=== PATIENT | female | born 1995 | race Caucasian/White ===

== ENCOUNTER 2021-04-01 11:41 | Emergency (ER) | payer BC ==
[2021-04-01 11:55] VITALS: BP 127/83
[2021-04-01] MEDS: SODIUM CHLORIDE 0.9% 1,000 ML IV STA (12:08)
[2021-04-01 12:11] LABS: BASOPHILS % (AUTO) 0.2 %; EOSINOPHILS % (AUTO) 0.2 %; HCT - HEMATOCRIT 37.5 % (37.0-47.0); HGB - HEMOGLOBIN 12.3 g/dL (12.0-16.0); LYMPHOCYTES # (AUTO) 1.8 10^3/uL (1.5-3.5); LYMPHOCYTES % (AUTO) 20.9 %; MEAN CORPUSCULAR HEMOGLOBIN 29.8 pg (27.0-31.0); MEAN CORPUSCULAR HGB CONC 32.8 g/dL (32.0-36.0); MEAN CORPUSCULAR VOLUME 90.8 fL (81.0-99.0); MEAN PLATELET VOLUME 11.2 fL (7.9-10.8); MONOCYTES # (AUTO) 0.6 10^3/uL (0.0-1.0); MONOCYTES % (AUTO) 6.8 %; NEUTROPHILS # (AUTO) 6.2 10^3/uL (1.5-6.6); NEUTROPHILS % (AUTO) 71.6 %; PLT - PLATELET COUNT 195 10^3/uL (130-450); RED BLOOD COUNT 4.13 10^6/uL (4.20-5.40); RED CELL DISTRIBUTION WIDTH 12.9 % (12.0-15.0); WHITE BLOOD COUNT 8.7 x10^3/uL (4.8-10.8)
[2021-04-01 12:14] LABS: BILIRUBIN,URINE NEGATIVE (NEGATIVE); GLUCOSE, URINE (UA) NEGATIVE (NEGATIVE); KETONES,URINE (UA) TRACE mg/dL (NEGATIVE); LEUKOCYTE ESTERASE, URINE TRACE (NEGATIVE); NITRITE,URINE NEGATIVE (NEGATIVE); OCCULT BLOOD,URINE TRACE-INTA (NEGATIVE); PH,URINE 7.5 PH (5.0-7.5); PROTEIN,URINE NEGATIVE (NEGATIVE); UROBILINOGEN,URINE 0.2 (NORMAL) E.U./dL (NORMAL)
[2021-04-01 12:28] LABS: BACTERIA,URINE Few /HPF (None Seen); CLARITY,URINE HAZY (CLEAR); RBC,URINE 0-5 /HPF (0-5); SQUAMOUS EPITHELIAL CELL,UR MOD Squamous (<= Few)
[2021-04-01 12:37] LABS: ALBUMIN 4.7 g/dL (3.2-5.5); ALBUMIN/GLOBULIN RATIO 1.6 (1.0-2.2); CALCIUM 9.1 mg/dL (8.5-10.3); CREATININE 0.4 mg/dL (0.4-1.0); POTASSIUM 3.4 mmol/L (3.5-5.0); TOTAL PROTEIN 7.7 g/dL (6.7-8.2)
--- NOTE | 2021-04-01 12:44 | ED Physician Documentation ---
History of Present Illness - Stated complaint Stated Complaint: VOMITING - Chief complaint Chief Complaint: General - History obtained from History obtained from: Patient - History of Present Illness Timing: How many days ago (2-3) Pain level max: 0 Pain level now: 0 - Additonal information Additional information: Patient is a 25-year-old female, 2 para 0. She presents to the emergency department with nausea and vomiting. Ongoing for the past several days. Unable to keep anything down. Went to the walk-in clinic today who sent her here for further evaluation. Has not taken anything for nausea. No abdominal pain. No vaginal bleeding. Worse with eating and drinking. Nothing makes it better. Review of Systems Constitutional: denies: Fever, Chills Cardiac: denies: Chest pain / pressure Respiratory: denies: Dyspnea, Cough GI: reports: Nausea, Vomiting. denies: Abdominal Pain, Diarrhea Skin: denies: Rash Musculoskeletal: denies: Neck pain, Back pain Neurologic: denies: Headache PD PAST MEDICAL HISTORY - Past Medical History Past Medical History: No - Past Surgical History Past Surgical History: No - Present Medications Home Medications: Ambulatory Orders Medication Instructions Recorded Confirmed Ondansetron Odt [Zofran] 4 mg TL Q6H PRN #20 tablet 04/01/21 - Allergies Allergies/Adverse Reactions: Allergies Allergy/AdvReac Type Severity Reaction Status Date / Time amoxicillin Allergy Anaphylaxis Verified 04/01/21 11:55 - Social History Does the pt smoke?: No Smoking Status: Never smoker Does the pt drink ETOH?: No Does the pt have substance abuse?: No - Immunizations Immunizations are current?: Yes - POLST Patient has POLST: No PD ED PE NORMAL - Vitals Vital signs reviewed: Yes - General General: Alert and oriented X 3, No acute distress, Well developed/nourished - HEENT HEENT: PERRL, Moist mucous membranes - Neck Neck: Supple, no meningeal sign - Cardiac Cardiac: RRR, Strong equal pulses - Respiratory Respiratory: No respiratory distress, Clear bilaterally - Abdomen Abdomen: Soft, Non tender, Non distended - Back Back: No spinal TTP - Derm Derm: Warm and dry - Extremities Extremities: No edema - Neuro Neuro: Alert and oriented X 3 - Psych Psych: Normal mood, Normal affect Results - Vitals Vitals: Vital Signs - 24 hr 04/01/21 11:52 Temperature 36.7 C Heart Rate 80 Respiratory 16 Rate Blood Pressure 127/83 H O2 Saturation 100 Oxygen O2 Source Room air - Labs Labs: Laboratory Tests 04/01/21 04/01/21 04/01/21 12:05 12:06 12:06 WBC 8.7 RBC 4.13 L Hgb 12.3 Hct 37.5 MCV 90.8 MCH 29.8 MCHC 32.8 RDW 12.9 Plt Count 195 MPV 11.2 H Neut # (Auto) 6.2 Lymph # (Auto) 1.8 [place] # (Auto) 0.6 Eos # (Auto) 0.0 Baso # (Auto) 0.0 Absolute Nucleated RBC 0.00 Nucleated RBC % 0.0 Sodium 134 L Potassium 3.4 L Chloride 102 Carbon Dioxide 23 Anion Gap 9.0 BUN 8 Creatinine 0.4 Estimated GFR (MDRD) 191 Glucose 91 Calcium 9.1 Total Bilirubin 1.0 AST 17 ALT 19 Alkaline Phosphatase 55 Total Protein 7.7 Albumin 4.7 Globulin 3.0 Albumin/Globulin Ratio 1.6 Lipase 26 Urine Color YELLOW Urine Clarity HAZY Urine pH 7.5 Ur Specific [place] 1.015 Urine Protein NEGATIVE Urine Glucose (UA) NEGATIVE Urine Ketones TRACE Urine Occult Blood TRACE-INTA Urine Nitrite NEGATIVE Urine Bilirubin NEGATIVE Urine Urobilinogen 0.2 (NORMAL) Ur Leukocyte Esterase TRACE H Urine RBC 0-5 Urine WBC 4-5 Ur Squamous Epith Cells MOD Squamous H Urine Bacteria Few Ur Microscopic Review INDICATED Urine Culture Comments NOT INDICATED PD MEDICAL DECISION MAKING - ED course Complexity details: reviewed results, re-evaluated patient, considered differential, d/w patient ED course: Patient is a 25-year-old female who presents to the emergency department with vomiting. Patient is . Bedside ultrasound reveals an intrauterine , 6 weeks 4 days with a heart rate of about 130. Patient feels better after Zofran and IV fluids. We discussed risks and benefits of Zofran including a study that showed a potential increase in cleft palate. Patient is okay with taking Zofran. Will prescribe this for home as well and have her follow-up with OB. Patient counseled regarding signs and symptoms for which I believe and urgent re-evaluation would be necessary. Patient with good understanding of and agreement to plan and is comfortable going home at this time This document was made in part using voice recognition software. While efforts are made to proofread this document, sound alike and grammatical errors may occur. Departure - Departure Disposition: 01 Home, Self Care Clinical Impression: Vomiting Qualifiers: Vomiting type: unspecified Vomiting Intractability: non-intractable Nausea presence: with nausea Qualified Code(s): R11.2 - Nausea with vomiting, unspecified Qualifiers: Weeks of gestation: less than 8 weeks Qualified Code(s): Z3A.01 - Less than 8 weeks gestation of Condition: Good Instructions: ED Preg Morning Sickness Follow-Up: [facility] [Provider Group] Prescriptions: Ondansetron Odt [Zofran] 4 mg TL Q6H PRN #20 tablet PRN Reason: Nausea / Vomiting Comments: Please follow-up with OB for further care. Your prescriptions were sent to [facility] in [place]. Drink plenty of fluids. Return if you worsen.
[2021-04-01] MEDS: ONDANSETRON 4 MG/2 ML VIAL IVP STA (12:50)
== END 2021-04-01 14:02 | disposition home or self-care (01) ==
LOC: ED 11:41
DX: O21.0 Mild hyperemesis gravidarum (principal); Z3A.01 Less than 8 weeks gestation of pregnancy
CPT/HCPCS: 36415; 80053; 81001; 81003; 83690; 85025; 87086; 96361; 96374; 99283

== ENCOUNTER 2021-04-07 01:59 | Emergency (ER) | payer BC ==
--- NOTE | 2021-04-07 02:12 | ED Physician Documentation ---
History of Present Illness - Stated complaint Stated Complaint: NO BM/RECTAL BLEEDING - Chief complaint Chief Complaint: General - History obtained from History obtained from: Patient - History of Present Illness Timing: How many weeks ago (1) - Additonal information Additional information: 25-year-old female who is about 8 weeks has developed constipation over the past week. She has had this happen to her once before in October of this year. She required an enema which had good results. She states that since that time she has had regular bowel movements until about 1 week ago. She developed some nausea and vomiting was seen in the emergency department had to take some Zofran and subsequently became constipated. The patient indicates that she is having some rectal pain associated with this and she has had some blood in the commode as well. She has not had some straining to get stool and nothing has happened. She is interested today and having an enema and she would like to have the fetus evaluated following that as she has read somewhere that an enema can stimulate contractions or cause a problem with the fetus. Review of Systems Constitutional: denies: Fever Nose: denies: Congestion Throat: denies: Sore throat Cardiac: denies: Chest pain / pressure Respiratory: denies: Dyspnea, Cough GI: reports: Abdominal Pain, Nausea, Constipation. denies: Vomiting : denies: Dysuria, Frequency PD PAST MEDICAL HISTORY - Past Surgical History Past Surgical History: No - Present Medications Home Medications: Ambulatory Orders Medication Instructions Recorded Confirmed Ondansetron Odt [Zofran] 4 mg TL Q6H PRN #20 tablet 04/01/21 - Allergies Allergies/Adverse Reactions: Allergies Allergy/AdvReac Type Severity Reaction Status Date / Time amoxicillin Allergy Anaphylaxis Verified 04/07/21 02:08 - Social History Does the pt smoke?: No Smoking Status: Never smoker Does the pt drink ETOH?: No Does the pt have substance abuse?: No - Immunizations Immunizations are current?: Yes - POLST Patient has POLST: No PD ED PE NORMAL - Vitals Vital signs reviewed: Yes (Normal) - General General: Alert and oriented X 3, No acute distress, Well developed/nourished - HEENT HEENT: Atraumatic, PERRL, EOMI - Neck Neck: Supple, no meningeal sign - Respiratory Respiratory: No respiratory distress - Abdomen Abdomen: Normal bowel sounds, Soft, Non tender, Non distended, No organomegaly - Rectal Rectal: Other (with Pooja as metal control coordinator the rectum is examined. There are 2 small non-thrombosed hemorrhoids without bleeding. 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 I was not able to provide gestational age or heart rate. Secondary to my incompetence with the new equipment. PD MEDICAL DECISION MAKING - ED course Complexity details: reviewed results, re-evaluated patient, considered differential, d/w patient ED course: 25-year-old female with a week of constipation and has relief of her constipation with the use of an oil retention enema and she has viability demonstrated by bedside ultrasound following the enema. I have encouraged the patient to use MiraLAX for the next 2 weeks to retrain her colon. Departure - Departure Disposition: 01 Home, Self Care Clinical Impression: Constipation Qualifiers: Constipation type: unspecified constipation type Qualified Code(s): K59.00 - Constipation, unspecified Condition: Stable Instructions: ED Constipation Follow-Up: Your, doctor [Other] Comments: Graciela, with constipation lasting a week it is fairly common for the colon to become inactive and one way to combat this is to use MiraLAX on a regular basis for the next 2 weeks.
[2021-04-07 04:19] VITALS: BP 115/67
== END 2021-04-07 04:00 | disposition home or self-care (01) ==
LOC: ED 01:59
DX: O99.611 Diseases of the digestive system complicating pregnancy, first trimester (principal); K59.00 Constipation, unspecified; Z3A.08 8 weeks gestation of pregnancy
CPT/HCPCS: 99282; 99283

== ENCOUNTER 2021-04-18 10:57 | Emergency (ER) | payer BC ==
[2021-04-18] MEDS ORDERED: ONDANSETRON 4 MG/2 ML VIAL IVP STA (11:50)
[2021-04-18] MEDS ORDERED: SODIUM CHLORIDE 0.9% 1,000 ML IV STA (11:50)
[2021-04-18 11:52] LABS: BASOPHILS % (AUTO) 0.3 %; HCT - HEMATOCRIT 40.6 % (37.0-47.0); HGB - HEMOGLOBIN 14.1 g/dL (12.0-16.0); LYMPHOCYTES # (AUTO) 1.1 10^3/uL (1.5-3.5); LYMPHOCYTES % (AUTO) 10.2 %; MEAN CORPUSCULAR HEMOGLOBIN 30.3 pg (27.0-31.0); MEAN CORPUSCULAR HGB CONC 34.7 g/dL (32.0-36.0); MEAN CORPUSCULAR VOLUME 87.1 fL (81.0-99.0); MEAN PLATELET VOLUME 11.8 fL (7.9-10.8); MONOCYTES # (AUTO) 0.4 10^3/uL (0.0-1.0); MONOCYTES % (AUTO) 3.4 %; NEUTROPHILS # (AUTO) 8.9 10^3/uL (1.5-6.6); NEUTROPHILS % (AUTO) 85.7 %; PLT - PLATELET COUNT 211 10^3/uL (130-450); RED BLOOD COUNT 4.66 10^6/uL (4.20-5.40); RED CELL DISTRIBUTION WIDTH 12.7 % (12.0-15.0); WHITE BLOOD COUNT 10.3 x10^3/uL (4.8-10.8)
[2021-04-18 12:11] LABS: ALBUMIN 5.3 g/dL (3.2-5.5); ALBUMIN/GLOBULIN RATIO 1.3 (1.0-2.2); BILIRUBIN,TOTAL 1.4 mg/dL (0.2-1.0); CALCIUM 10.2 mg/dL (8.5-10.3); CREATININE 0.5 mg/dL (0.4-1.0); POTASSIUM 3.4 mmol/L (3.5-5.0); TOTAL PROTEIN 9.3 g/dL (6.7-8.2)
[2021-04-18 12:40] LABS: BILIRUBIN,URINE NEGATIVE (NEGATIVE); GLUCOSE, URINE (UA) NEGATIVE (NEGATIVE); KETONES,URINE (UA) >=80 mg/dL (NEGATIVE); LEUKOCYTE ESTERASE, URINE NEGATIVE (NEGATIVE); NITRITE,URINE NEGATIVE (NEGATIVE); OCCULT BLOOD,URINE MODERATE (NEGATIVE); PROTEIN,URINE TRACE mg/dL (NEGATIVE); UROBILINOGEN,URINE 0.2 (NORMAL) E.U./dL (NORMAL)
[2021-04-18 13:10] VITALS: BP 147/77
[2021-04-18 13:11] LABS: CLARITY,URINE CLEAR (CLEAR)
[2021-04-18 13:13] LABS: WBC CLUMPS,URINE NONE SEEN; WBC,URINE 0-3 /HPF (0-5)
[2021-04-18 13:14] LABS: BACTERIA,URINE None Seen /HPF (None Seen); EPITHELIAL CELLS,UR None Seen /HPF (<= Few); SQUAMOUS EPITHELIAL CELL,UR FEW Squamous (<= Few)
--- NOTE | 2021-04-18 13:24 | ED Physician Documentation ---
PD HPI NVD - Stated complaint Stated Complaint: N/V - Chief complaint Chief Complaint: Abd Pain - History obtained from History obtained from: Patient - History of Present Illness Timing - onset: How many days ago (33) Timing - duration: Days Timing - details: Gradual onset, Still present Associated symptoms: Abdominal pain, Dizzy, Near syncope / syncope Contributing factors: Other () Improved by: Vomiting, Meds Worsened by: Eating Similar symptoms before: Diagnosis (Hyperemesis gravidarum) Recently seen: Clinic (Sent from the OB clinic to the emergency department for hydration) - Additonal information Additional information: 25-year-old female 9 weeks has developed symptoms of hyperemesis she has been treated for hyperemesis recently in the emergency department with intravenous fluid and Zofran she has run out of her Zofran at home she has began to have some more issues with vomiting and she has not been able to hold anything down for about 3 days. She went into her [facility] doctor for her first visit and she was asked to come to the emergency department for hydration. She has had 2 ultrasounds with this . Review of Systems Ears: denies: Ear pain Nose: denies: Congestion Throat: denies: Oral lesions / sores, Sore throat Cardiac: denies: Chest pain / pressure, Palpitations Respiratory: denies: Dyspnea, Cough GI: reports: Nausea, Vomiting. denies: Abdominal Pain : denies: Dysuria, Frequency Skin: denies: Rash Musculoskeletal: denies: Neck pain, Back pain, Extremity pain Neurologic: denies: Generalized weakness, Focal weakness, Numbness PD PAST MEDICAL HISTORY - Past Surgical History Past Surgical History: No Ortho: Rotator cuff repair - Present Medications Home Medications: Ambulatory Orders Medication Instructions Recorded Confirmed Ondansetron Odt [Zofran] 4 mg TL Q6H PRN #20 tablet 04/01/21 Ondansetron Odt [Zofran] 4 mg TL Q6H PRN #10 tablet 04/18/21 - Allergies Allergies/Adverse Reactions: Allergies Allergy/AdvReac Type Severity Reaction Status Date / Time amoxicillin Allergy Anaphylaxis Verified 04/18/21 11:06 - Social History Does the pt smoke?: No Smoking Status: Never smoker Does the pt drink ETOH?: No Does the pt have substance abuse?: No - Immunizations Immunizations are current?: Yes - POLST Patient has POLST: No PD ED PE NORMAL - Vitals Vital signs reviewed: Yes (normal ) - General General: Alert and oriented X 3, Well developed/nourished, Other (appears nauseated ) - HEENT HEENT: Atraumatic, PERRL, EOMI - Neck Neck: Supple, no meningeal sign, No bony TTP - Cardiac Cardiac: RRR, No murmur - Respiratory Respiratory: No respiratory distress, Clear bilaterally - Abdomen Abdomen: Normal bowel sounds, Soft, Non tender, Non distended, No organomegaly - Back Back: No CVA TTP, No spinal TTP - Derm Derm: Normal color, Warm and dry, No rash - Extremities Extremities: No deformity, No edema - Neuro Neuro: Alert and oriented X 3, endband sizer 2-12 intact, No motor deficit, No sensory deficit, Normal speech Eye Opening: Spontaneous Motor: Obeys Commands Verbal: Oriented GCS Score: 15 - Psych Psych: Normal mood, Normal affect Results - Vitals Vitals: Vital Signs - 24 hr 04/18/21 04/18/21 11:05 13:09 Temperature 36.5 C Heart Rate 80 65 Respiratory 18 13 Rate Blood Pressure 108/72 147/77 H O2 Saturation 100 100 Oxygen O2 Source Room air - Labs Labs: Laboratory Tests 04/18/21 04/18/21 04/18/21 11:36 11:36 12:06 WBC 10.3 RBC 4.66 Hgb 14.1 Hct 40.6 MCV 87.1 MCH 30.3 MCHC 34.7 RDW 12.7 Plt Count 211 MPV 11.8 H Neut # (Auto) 8.9 H Lymph # (Auto) 1.1 L [place] # (Auto) 0.4 Eos # (Auto) 0.0 Baso # (Auto) 0.0 Absolute Nucleated RBC 0.00 Nucleated RBC % 0.0 Sodium 135 Potassium 3.4 L Chloride 98 L Carbon Dioxide 21 Anion Gap 16.0 H BUN 20 Creatinine 0.5 Estimated GFR (MDRD) 148 Glucose 89 Calcium 10.2 Total Bilirubin 1.4 H AST 25 ALT 23 Alkaline Phosphatase 64 Total Protein 9.3 H Albumin 5.3 Globulin 4.0 Albumin/Globulin Ratio 1.3 Lipase 32 Urine Color YELLOW Urine Clarity CLEAR Urine pH 6.0 Ur Specific [place] >=1.030 H Urine Protein TRACE Urine Glucose (UA) NEGATIVE Urine Ketones >=80 H Urine Occult Blood MODERATE H Urine Nitrite NEGATIVE Urine Bilirubin NEGATIVE Urine Urobilinogen 0.2 (NORMAL) Ur Leukocyte Esterase NEGATIVE Urine RBC 6-10 H Urine WBC 0-3 Urine WBC Clumps NONE SEEN Ur Epithelial Cells None Seen Ur Squamous Epith Cells FEW Squamous Urine Bacteria None Seen Ur Microscopic Review INDICATED Urine Culture Comments NOT INDICATED PD MEDICAL DECISION MAKING - ED course Complexity details: reviewed old records, reviewed results, re-evaluated patient, considered differential, d/w patient ED course: 25-year-old female 9 weeks with hyperemesis gravidarum has improvement with the use of intravenous saline and Zofran. She is given oral fluid challenge does well with this and wants to go home. Departure - Departure Disposition: , Self Care Clinical Impression: Hyperemesis gravidarum Condition: Stable Instructions: ED Preg Morning Sickness Follow-Up: [facility] [Provider Group] Prescriptions: Ondansetron Odt [Zofran] 4 mg TL Q6H PRN #10 tablet PRN Reason: Nausea / Vomiting Comments: Graciela, today it appears you were bit dehydrated from all the vomiting and you have been given some intravenous fluids and we have written a prescription for some Zofran which has been E scribed to [facility] in [place]. Discharge Date/Time: 04/18/21 14:13
== END 2021-04-18 14:13 | disposition home or self-care (01) ==
LOC: ED 10:57
DX: O21.0 Mild hyperemesis gravidarum (principal); Z3A.09 9 weeks gestation of pregnancy
CPT/HCPCS: 36415; 80053; 81001; 81003; 83690; 85025; 87086; 96361; 96374; 99284

== ENCOUNTER 2021-05-04 11:17 | Outpatient (CLI) | payer BC ==
--- NOTE | 2021-05-04 12:20 | Ultrasound Report ---
PROCEDURE: OB First Trimester INDICATIONS: +PREG TEST OUTSIDE/PRIOR DATING DATA: Last menstrual period (LMP): 02/03/2021. LMP-based estimated date of delivery (LALO): 11/10/2021. First dating scan (date and location): 05/04/2021. Estimated date of delivery (LALO) from first dating scan: 11/19/2021. The below data below was generated using the ultrasound LALO of 11/19/2021 TECHNIQUE: Real-time scanning was performed of the fetus and maternal pelvic organs, with image documentation. COMPARISON: None FINDINGS: Embryo: The gestational sac diameter is 4.8 cm corresponding with 10 weeks 3 days. Koppel-rump length is 4.7 cm corresponding with 11 weeks 4 days. Heart rate: 164 There is a subchorionic hemorrhage measuring 1.5 x 0.7 x 3.0 cm superior to the gestational sac. Maternal organs: A right ovarian corpus luteal cyst is seen. IMPRESSION: 1. Live intrauterine with a composite gestational age by crown-rump length of 11 weeks 4 da ys. 2. Small subchorionic hemorrhage superior to the gestational sac measuring 1.5 x 0.7 x 3.4 cm. Reviewed by: Wily Downing on 05/04/2021 11:18 AM [facility] Approved by: Wily Downing on 05/04/2021 11:18 AM [facility] Station ID: [id number]
== END 2021-05-04 11:18 | disposition home or self-care (01) ==
LOC: DI 11:17
PROVIDERS: ATTEND Obstetrics & Gynecology
DX: O20.9 Hemorrhage in early pregnancy, unspecified (principal); Z3A.11 11 weeks gestation of pregnancy

== ENCOUNTER 2021-06-01 09:04 | Outpatient (CLI) | payer BC ==
[2021-06-01 09:30] LABS: BILIRUBIN,URINE NEGATIVE (NEGATIVE); GLUCOSE, URINE (UA) NEGATIVE (NEGATIVE); KETONES,URINE (UA) NEGATIVE (NEGATIVE); LEUKOCYTE ESTERASE, URINE MODERATE (NEGATIVE); NITRITE,URINE POSITIVE (NEGATIVE); OCCULT BLOOD,URINE MODERATE (NEGATIVE); PROTEIN,URINE 30 mg/dL (NEGATIVE); UROBILINOGEN,URINE 1 (NORMAL) E.U./dL (NORMAL)
[2021-06-01 09:31] LABS: CLARITY,URINE CLEAR (CLEAR)
[2021-06-01 09:39] LABS: BACTERIA,URINE Few /HPF (None Seen); RBC,URINE TNTC /HPF (0-5); SQUAMOUS EPITHELIAL CELL,UR RARE Squamous (<= Few); WBC CLUMPS,URINE PRESENT; WBC,URINE >25 /HPF (0-5)
== END 2021-06-01 09:05 | disposition home or self-care (01) ==
LOC: LAB 09:04
PROVIDERS: ATTEND Obstetrics & Gynecology
DX: R30.0 Dysuria (principal)
CPT/HCPCS: 81001; 87077; 87086; 87181

== ENCOUNTER 2021-06-02 13:01 | Outpatient (CLI) | payer BC ==
[2021-06-02 13:47] LABS: BASOPHILS % (AUTO) 0.1 %; EOSINOPHILS # (AUTO) 0.2 10^3/uL (0.0-0.7); EOSINOPHILS % (AUTO) 1.9 %; HCT - HEMATOCRIT 33.2 % (37.0-47.0); HGB - HEMOGLOBIN 11.3 g/dL (12.0-16.0); LYMPHOCYTES # (AUTO) 1.5 10^3/uL (1.5-3.5); LYMPHOCYTES % (AUTO) 18.4 %; MEAN CORPUSCULAR HEMOGLOBIN 30.7 pg (27.0-31.0); MEAN CORPUSCULAR VOLUME 90.2 fL (81.0-99.0); MEAN PLATELET VOLUME 11.5 fL (7.9-10.8); MONOCYTES # (AUTO) 0.5 10^3/uL (0.0-1.0); MONOCYTES % (AUTO) 6.7 %; NEUTROPHILS # (AUTO) 5.9 10^3/uL (1.5-6.6); NEUTROPHILS % (AUTO) 72.5 %; PLT - PLATELET COUNT 168 10^3/uL (130-450); RED BLOOD COUNT 3.68 10^6/uL (4.20-5.40); RED CELL DISTRIBUTION WIDTH 13.3 % (12.0-15.0); WHITE BLOOD COUNT 8.1 x10^3/uL (4.8-10.8)
[2021-06-02 14:36] LABS: BILIRUBIN,URINE NEGATIVE (NEGATIVE); GLUCOSE, URINE (UA) NEGATIVE (NEGATIVE); KETONES,URINE (UA) NEGATIVE (NEGATIVE); LEUKOCYTE ESTERASE, URINE TRACE (NEGATIVE); NITRITE,URINE NEGATIVE (NEGATIVE); OCCULT BLOOD,URINE NEGATIVE (NEGATIVE); PROTEIN,URINE NEGATIVE (NEGATIVE); UROBILINOGEN,URINE 1 (NORMAL) E.U./dL (NORMAL)
[2021-06-02 14:51] LABS: BACTERIA,URINE Few /HPF (None Seen); CLARITY,URINE CLEAR (CLEAR); RBC,URINE 0-5 /HPF (0-5); SQUAMOUS EPITHELIAL CELL,UR MOD Squamous (<= Few)
[2021-06-03 09:58] LABS: HEPATITIS B SURFACE ANTIGEN NON-REACTIVE (NON-REACTIVE); HEPATITIS C ANTIBODY NON-REACTIVE (NON-REACTIVE)
[2021-06-03 15:21] LABS: HIV AG/AB 4TH GEN NON-REACTIVE (NON-REACTIVE)
== END 2021-06-02 13:02 | disposition home or self-care (01) ==
LOC: LAB 13:01
PROVIDERS: ATTEND Obstetrics & Gynecology
DX: Z36.89 Encounter for other specified antenatal screening (principal); O99.891 Other specified diseases and conditions complicating pregnancy; R30.0 Dysuria
CPT/HCPCS: 36415; 81001; 85025; 86592; 86762; 86787; 86803; 86850; 86900; 86901; 87086; 87340; 87389

== ENCOUNTER 2021-06-13 10:14 | Outpatient (CLI) | payer BC ==
[2021-06-13 10:22] LABS: BILIRUBIN,URINE NEGATIVE (NEGATIVE); KETONES,URINE (UA) NEGATIVE (NEGATIVE)
[2021-06-13 10:30] LABS: CLARITY,URINE HAZY (CLEAR); SQUAMOUS EPITHELIAL CELL,UR RARE Squamous (<= Few); WBC,URINE >25 /HPF (0-5)
[2021-06-13 10:31] LABS: BACTERIA,URINE Few /HPF (None Seen)
== END 2021-06-13 10:15 | disposition home or self-care (01) ==
LOC: LAB.R 10:14
PROVIDERS: ATTEND Obstetrics & Gynecology
DX: O99.891 Other specified diseases and conditions complicating pregnancy (principal); R30.0 Dysuria
CPT/HCPCS: 81001; 87086

== ENCOUNTER 2021-06-19 08:00 | Outpatient (CLI) | payer BC ==
[2021-06-19 12:49] LABS: BILIRUBIN,URINE NEGATIVE (NEGATIVE); GLUCOSE, URINE (UA) NEGATIVE (NEGATIVE); KETONES,URINE (UA) NEGATIVE (NEGATIVE); LEUKOCYTE ESTERASE, URINE NEGATIVE (NEGATIVE); NITRITE,URINE NEGATIVE (NEGATIVE); OCCULT BLOOD,URINE NEGATIVE (NEGATIVE); PH,URINE 7.5 PH (5.0-7.5); PROTEIN,URINE NEGATIVE (NEGATIVE); UROBILINOGEN,URINE 0.2 (NORMAL) E.U./dL (NORMAL)
[2021-06-19 13:30] LABS: CLARITY,URINE CLEAR (CLEAR)
[2021-06-19 13:33] LABS: BACTERIA,URINE Few /HPF (None Seen); RBC,URINE None Seen /HPF (0-5); SQUAMOUS EPITHELIAL CELL,UR RARE Squamous (<= Few); WBC,URINE 0-3 /HPF (0-5)
== END 2021-06-19 23:59 | disposition home or self-care (01) ==
LOC: LAB.WC 08:00
PROVIDERS: ATTEND Obstetrics & Gynecology
DX: O99.891 Other specified diseases and conditions complicating pregnancy (principal); R30.0 Dysuria
CPT/HCPCS: 81001; 87086

== ENCOUNTER 2021-06-28 15:46 | Outpatient (CLI) | payer BC, OTHER ==
[2021-06-30 09:45] LABS: AFP MOM 1.51; AGE RISK DOWN SYNDROME 1 IN 884; CALC'D GESTATIONAL AGE 19.4 weeks; CIGARETTE SMOKER? NOT GIVEN; DONOR AGE: EGG RETRIEVAL NOT GIVEN; DONOR EGG NO; EDD DETERMINED BY ULTRASOUND; ESTRIOL MOM 0.89; HCG MOM 1.41; HX OF NEURAL TUBE DEFECTS NO; INHIBIN A MOM 0.39; INSULIN DEPEND DIABETIC NO; MATERNAL WEIGHT 149 lbs; MSS DOWN SYNDROME RISK <1 IN 5000; MSS3 TRISOMY 18 RISK <1 IN 5000; NUMBER OF FETUSES 1; PREV PREGNANCY DOWN SYND NO; RISK FOR ONTD 1 IN 1083
== END 2021-06-28 15:47 | disposition home or self-care (01) ==
LOC: LAB 15:46
PROVIDERS: ATTEND Obstetrics & Gynecology
DX: Z34.90 Encounter for supervision of normal pregnancy, unspecified, unspecified trimester (principal)
CPT/HCPCS: 36415; 81511

== ENCOUNTER 2021-07-05 08:45 | Outpatient (CLI) | payer BC ==
--- NOTE | 2021-07-05 10:47 | Ultrasound Report ---
PROCEDURE: OB Detailed Eval INDICATIONS: SUPERVISION OF OUTSIDE/PRIOR DATING DATA: Last menstrual period (LMP): 02/03/2021. LMP-based estimated date of delivery (LALO): 11/10/2021. First dating scan (date and location): 05/04/2021. Estimated date of delivery (LALO) from first dating scan: 11/19/2021. The below data below was generated using the ultrasound LALO of 11/19/2021 TECHNIQUE: Real-time scanning was performed of the fetus, with image documentation and biometric measurements. COMPARISON: 05/04/2021 FINDINGS: General: A single live intrauterine gestation is present. Presentation: Breech Placenta: Placental position is posterior, without previa. Amniotic fluid index: 11.3 cm, within normal limits for gestational age. Largest pocket: 3.8 cm heart rate: 124 beats per minute. Maternal cervical canal: 4 cm long; normal length is 2.5 cm or more. biometrics: Biparietal diameter: 4.4 cm equals 19 weeks 2 days Head circumference: 16.6 cm equals 19 weeks 2 days Abdominal circumference: 15.4 cm equals 20 weeks 4 days Femur length: 3.1 cm equals 19 weeks 5 days Estimated gestational age from initial scan: 20 weeks 3 days Composite gestational age from present scan: 19 weeks 4 days Estimated weight and percentile: 330 g, 26 percentile Measurement variability in biometric dating: +/- 10 days from 12-20 weeks gestation, +/- 2 weeks from 20-30 weeks gestation, +/- 3 weeks at 30 weeks gestation or later. Anatomic survey: Neuro: Ventricles are normal at less than 10 mm. Cisterna magna is normal at 3-11 mm. Cerebellum i s normal in size and morphology. Nuchal skin fold: Normal at less than 6 mm between 14 and 20 weeks gestational age. Face: Nose and lips, facial profile are normal. Spine: No evidence for spina bifida. Heart: 4-chambered heart is present, with normal ventricular outflow tracts. An echogenic intracard iac focus is seen. Diaphragm: Diaphragm is intact. Stomach: Left-sided stomach is present. Kidneys: No hydronephrosis. Normal is less than 5 mm in 2nd trimester, less than 7 mm in 3rd trimester. Cord: 3 vessel cord has orthotopic insertion. Bladder: Normal in size. Extremities: All 4 extremities are visualized. An apparent right ovarian corpus luteum is incidentally noted measuring up to 11 mm. IMPRESSION: Single live intrauterine . Normal interval growth compared to the prior ultrasound examination. No anatomic abnormalities are identified. However, an echogenic intracardiac focus is seen. This is m ost commonly a benign, incidental finding. However, it can be seen in patients with chromosomal abnor malities. Reviewed by: Tino Mccormick MD on 07/05/2021 9:45 AM [facility] Approved by: Tino Mccormick MD on 07/05/2021 9:45 AM [facility] Station ID: [id number]
== END 2021-07-05 08:46 | disposition home or self-care (01) ==
LOC: DI 08:45
PROVIDERS: ATTEND Obstetrics & Gynecology
DX: Z34.02 Encounter for supervision of normal first pregnancy, second trimester (principal); Z3A.20 20 weeks gestation of pregnancy

== ENCOUNTER 2021-08-20 16:37 | Outpatient (CLI) | payer OTHER | END 2021-08-20 16:38 | disposition home or self-care (01) | LOC: LAB 16:37 | PROVIDERS: ATTEND Obstetrics & Gynecology | DX: Z34.00 Encounter for supervision of normal first pregnancy, unspecified trimester (principal) | CPT/HCPCS: 36415; 82950 ==

== ENCOUNTER 2021-10-24 11:45 | Outpatient (CLI) | payer OTHER | END 2021-10-24 23:59 | disposition home or self-care (01) | LOC: LAB.WC 11:45 | PROVIDERS: ATTEND Nurse Practitioner | DX: Z36.85 Encounter for antenatal screening for Streptococcus B (principal) | CPT/HCPCS: 87081; 87181; 87797 ==

== ENCOUNTER 2021-10-31 15:20 | Outpatient (CLI) | payer OTHER ==
--- NOTE | 2021-10-31 17:00 | Ultrasound Report ---
PROCEDURE: OB F/U or Repeat INDICATIONS: SUPERVISION OF OUTSIDE/PRIOR DATING DATA: Last menstrual period (LMP): 02/03/2021. LMP-based estimated date of delivery (LALO): 11/10/2021. First dating scan (date and location): 05/04/2021. Estimated date of delivery (LALO) from first dating scan: 11/19/2021. TECHNIQUE: Real-time scanning was performed of the fetus, with image documentation and biometric measurements. Endovaginal scanning: No COMPARISON: Ultrasound dated 07/05/2021 FINDINGS: General: A single living intrauterine gestation is present. Presentation: Cephalic Placenta: Placental position is posterior, without previa. Amniotic fluid index: 12.9 cm heart rate: 123 beats per minute. Maternal cervical canal: 5.2 cm long; normal length is 2.5 cm or more. biometrics: Biparietal diameter: 90 mm; 36 weeks 2 days Head circumference: 325 mm; 36 weeks 5 days Abdominal circumference: 333 mm; 37 weeks 1 day Femur length: 69 mm; 35 weeks 3 days Estimated gestational age from initial scan: 37 weeks 2 days Composite gestational age from present scan: 36 weeks 3 days Estimated weight and percentile: 2989 g, which is at the 40th percentile for gestational age Measurement variability in biometric dating: +/- 10 days from 12-20 weeks gestation, +/- 2 weeks from 20-30 weeks gestation, +/- 3 weeks at 30 weeks gestation or more. Other: Survey of anatomy currently includes normal chest/diaphragm, stomach/abdomen, bilateral renal regions, and urinary bladder/pelvis. IMPRESSION: 1. Single living intrauterine gestation. 2. Appropriate interval growth. Reviewed by: Troy Goodwin MD on 10/31/2021 4:59 PM PDT Approved by: Troy Goodwin MD on 10/31/2021 4:59 PM PDT Station ID: [id number]
== END 2021-10-31 15:21 | disposition home or self-care (01) ==
LOC: DI 15:20
PROVIDERS: ATTEND Obstetrics & Gynecology
DX: O21.9 Vomiting of pregnancy, unspecified (principal); Z3A.36 36 weeks gestation of pregnancy

== ENCOUNTER 2021-11-21 07:28 | Inpatient (IN) | payer OTHER ==
[2021-11-21] MEDS ORDERED: METHYLERGONOVINE 0.2 MG/ML VIAL IM PRN (08:26)
[2021-11-21] MEDS ORDERED: OXYTOCIN 10 UNIT/ML VIAL IM PRN (08:26)
[2021-11-21] MEDS ORDERED: CARBOPROST TROMETHAMINE 250 MCG/ML AMP IM PRN (08:26)
[2021-11-21] MEDS ORDERED: hydrALAZINE INJ 20 MG/ML VIAL IVP PRN ×2 (08:26)
[2021-11-21] MEDS ORDERED: LABETALOL 20 MG/4 ML SYRINGE IVP PRN ×3 (08:26)
[2021-11-21] MEDS ORDERED: NIFEdipine 10 MG CAPSULE PO PRN (08:26)
[2021-11-21] MEDS ORDERED: fentaNYL 100 MCG/2 ML VIAL IVP PRN (08:26)
[2021-11-21] MEDS ORDERED: SODIUM CHLORIDE FLUSH 0.9% 10 ML SYRINGE IVP PRN (08:26)
[2021-11-21] MEDS ORDERED: miSOPROStoL 200 MCG TABLET BC PRN (08:26)
[2021-11-21] MEDS ORDERED: TERBUTALINE 1 MG/ML VIAL SUBQ PRN (08:26)
[2021-11-21] MEDS ORDERED: ONDANSETRON 4 MG/2 ML VIAL IVP PRN (08:26)
[2021-11-21] MEDS ORDERED: OXYTOCIN/SODIUM CHLORIDE 500 ML IV PRN (08:26)
[2021-11-21] MEDS ORDERED: lidocaine 1% 20 ML MDV ID PRN (08:26)
[2021-11-21] MEDS ORDERED: miSOPROStoL 200 MCG TABLET PR PRN (08:26)
[2021-11-21] MEDS ORDERED: TRANEXAMIC ACID IN NACL 1,000 MG/100 ML BAG IV PRN (08:26)
--- NOTE | 2021-11-21 08:26 | HISTORY & PHYSICAL EXAMINATION ---
Admit History - Visit Reason Visit Reason: Contractions, Membranes rupture - : 2 Parity: 0 Premature: 0 : 1 Care: positive: [facility] Risk/History: positive: None Complications This : positive: None Smoking Status: Never smoker - Mother's Labs Mother's Blood Type: positive: O Mother's RH: positive: Positive GBS: positive: Group B Strep Positive Rubella Status: positive: Immune - Other Maternal History Other Maternal History: HPI: 18-year-old -0-1-0 at 40 weeks 2 days gestation by 10-week ultrasound presents today with contractions and rupture of membranes. Contractions started about 1230 this morning and are occurring every 5 to 8 minutes and rupture of membranes occurred at approximately 0700. She has good movement. No MONROE/BV or RUQP. No vaginal bleeding. Denies nausea and vomiting. Denies urinary urgency or dysuria. All other symptoms reviewed and were negative except per HPI. Course LMP: 02/03/2021 LALO by LMP:11/10/2021 Initial U/S:05/04/2021 @10w3d not c/w LMP ( LALO 11/19/2021) FINAL LALO: 11/19/2021 Problems: HSV: Compliant with HSV prophylaxis. Nausea and vomiting: Needs to continue B6 and Unisom. Nausea improved. Gaining weight. GERD: Intermittent issue. Can take medication daily if needed. Depression: Not currently on medication, but did give a list of counselors previously. Better than previous, and still wants to wait on treatment. Pelvic floor dysfunction: Established with pelvic floor PT. Blood Type: O Positive, AB screen negative Rubella: Immune VZV: immune Genetic testing: Quad screen- Negative FAS: EFW 330g 26%ile, 3VC, placenta posterior without previa, SURYA WNL, Glucola:136, Influenza:06/05/2021 TDAP- 08/28 Covid-pfizer 05/2020 and 06/2020 Booster 05/07/2021, had Covid GBS:Collected 10/24/21 Positive, PCN allergy: Sensitivities done: resistance to clindamycin. Will need vancomycin during labor HSV: Personal history. Has initiatd supressive therapy without issue Breast pump Rx:08/28/21 MOD:, FOB: Eber- plans to be present for . pp contraception:Unsure, considering low or non hormonal options. PMH Will vaginal HSV PSH Rotator cuff repair Hand surgery OB History -0-1-0 1. 05/2019, 7 weeks, spontaneous 2. Current SH Denies tobacco, alcohol, drugs Family History Father: Asthma Mother: Hypertension Extended family members with alcoholism Allergies Amoxicillin: Anaphylaxis Medications Acyclovir 400 mg 3 times daily Zofran 4 mg needed Omeprazole 20 mg daily vitamins Physical exam: General: Alert, oriented, no acute distress Head: Normal cephalic atraumatic Eyes: PERRLA, extraocular motions intact. Respiratory: Normal rate of respiration. No accessory muscle use, normal respiratory effort. Cardiovascular: Regular rate and rhythm Abdomen: Gravid, nontender, nondistended Extremities: Normal range of motion Neuro: Oriented x3. Normal movements Psych: Appropriate mood and affect. Normal judgment and insight SVE: 5/80/0 FHT: 130 bpm baseline, moderate variability, accelerations present, no decelerations. [place]: 2-4 minutes Plan 26-year-old at 40 weeks 2 days gestation admitted for term labor 1. Term Labor/SROM -Admit to L&D, admit labs, epidural at patient's request. -Nitrous oxide if desired 2. Vulvovaginal HSV -Appropriate on prophylaxis -No prodromal symptoms or outbreak -Bright light exam negative 3. GBS positive -Allergic to amoxicillin -Induced erythromycin resistance not performed -We will treat with vancomycin for GBS sepsis prophylaxis. Meds/Allgy - Home Medications Home Medications: Ambulatory Orders Medication Instructions Recorded Confirmed Ondansetron Odt [Zofran] 4 mg TL Q6H PRN #20 tablet 04/01/21 Ondansetron Odt [Zofran] 4 mg TL Q6H PRN #10 tablet 04/18/21 - Allergies Allergies/Adverse Reactions: Allergies Allergy/AdvReac Type Severity Reaction Status Date / Time amoxicillin Allergy Anaphylaxis Verified 04/18/21 11:06 Physical - Abdominal Exam Vital Signs: Temp Pulse Resp BP Pulse Ox 97.5 F L 77 18 122/90 H 100 11/21/21 07:50 11/21/21 07:48 11/21/21 07:48 11/21/21 07:48 11/21/21 07:48
[2021-11-21] MEDS ORDERED: SODIUM CHLORIDE FLUSH 0.9% 10 ML SYRINGE IVP SCH (09:00)
[2021-11-21] MEDS ORDERED: LACTATED RINGERS 1,000 ML IV SCH ×2 (09:00→12:00)
[2021-11-21 09:08] LABS: BASOPHILS % (AUTO) 0.1 %; EOSINOPHILS # (AUTO) 0.1 10^3/uL (0.0-0.7); EOSINOPHILS % (AUTO) 0.7 %; HCT - HEMATOCRIT 33.5 % (37.0-47.0); HGB - HEMOGLOBIN 11.3 g/dL (12.0-16.0); LYMPHOCYTES # (AUTO) 2.1 10^3/uL (1.5-3.5); LYMPHOCYTES % (AUTO) 19.2 %; MEAN CORPUSCULAR HGB CONC 33.7 g/dL (32.0-36.0); MEAN CORPUSCULAR VOLUME 86.1 fL (81.0-99.0); MONOCYTES # (AUTO) 0.7 10^3/uL (0.0-1.0); MONOCYTES % (AUTO) 6.5 %; PLT - PLATELET COUNT 234 10^3/uL (130-450); RED BLOOD COUNT 3.89 10^6/uL (4.20-5.40); RED CELL DISTRIBUTION WIDTH 13.4 % (12.0-15.0); WHITE BLOOD COUNT 10.9 x10^3/uL (4.8-10.8)
[2021-11-21] MEDS ORDERED: VANCOMYCIN INJ 1.75 GM in SODIUM CHLORIDE 0.9% 500 ML IV ONE (10:00)
[2021-11-21] MEDS ORDERED: SIMETHICONE CHEW 80 MG TABLET PO PRN (11:44)
--- NOTE | 2021-11-21 11:45 | DELIVERY NOTE ---
Delivery Note - Labor Labor: positive: Spontaneous - Delivery Method Delivery Method: positive: Spontaneous vaginal delivery - Presentation Presentation: positive: JUSTIN - right occiput anterior - Nuchal Cord Nuchal Cord: positive: None - Amniotic Fluid Description Amniotic Fluid Description: positive: Clear - Laceration Laceration: positive: 1st degree, Periurethral - Suture Suture Type: positive: Vicryl, Chromic Suture Size: positive: 3-0 - Delivery Outcome Delivery Outcome: positive: Livebirth - Castor: positive: Placed in direct skin contact with mother sex: positive: Female - Cord Cord: positive: 3 vessels - Placenta Placenta: positive: Intact, Spontaneous - Estimated Blood Loss Estimated Blood Loss (in cc): 300 - Post Delivery Events Post Delivery Events: positive: No post delivery events - Delivery Comments (Free Text/Narrative) Delivery Comments (Free Text/Narrative): Preoperative Diagnoses 26-year-old -0-1-0 40 weeks gestation Term labor Spontaneous rupture of membranes Postoperative Diagnoses Same Delivered Labor course: Patient began having contractions at approximately 1230 this morning. She then had spontaneous rupture of membranes at 0700. She continues to progress on her own using nitrous oxide for pain control. She progressed to complete at 1037 and began pushing. Time of 1113 Delivery Summary: Patient was placed in the dorsal lithotomy position. Upon maternal pushing the head was delivered atraumatically followed by the anterior shoulder, posterior shoulder, then the remainder of the 's body. A female infant was delivered with APGARS of 8 at 1 minute and 9 at 5 minutes. The infant was placed on its mother's chest . After the cord finished pulsating, the umbilical cord was clamped times two and cut. The placenta delivered intact with three vessel cord. Placenta was not sent to pathology. Thirty units of Pitocin were added to the IV fluid and allowed to run freely. Uterine massage was performed until uterus was deemed firm. Upon inspection of the perineum, a first-degree laceration and a periurethral tear was noted. The brisk bleeding from the urethral tear was repaired with a [id number] stitch of 3-0 chromic. The first-degree laceration was repaired with a [id number] stitch as well. Upon re-inspection the patient was hemostatic. Uterus again massaged and found to be firm. Needle and sponge counts were correct. Patient was stable and allowed to recover in L&D room. Infant was stable and remained in room with mother. weight is pending at this time.
[2021-11-21] MEDS: ACETAMINOPHEN 500 MG TABLET PO SCH ×2 (13:35→21:19)
[2021-11-21] MEDS: IBUPROFEN 600 MG TABLET PO SCH ×2 (13:35→21:18)
[2021-11-21] MEDS ORDERED: CLINDAMYCIN 900 MG/50 ML 50 ML IV SCH (14:00)
[2021-11-21] MEDS: DOCUSATE SODIUM 100 MG CAPSULE PO PRN (21:18)
[2021-11-22] MEDS: IBUPROFEN 600 MG TABLET PO SCH ×4 (02:58→21:58)
[2021-11-22] MEDS: ACETAMINOPHEN 500 MG TABLET PO SCH ×2 (05:07→15:47)
--- NOTE | 2021-11-22 06:44 | PROVIDER PROGRESS NOTE ---
Subjective - Prog Note Date Prog Note Date: 11/22/21 - Subjective Subjective: Subjective Patient reports she is doing well. Lochia appropriate. Denies heavy bleeding. Ambulating. Pelvic and abdominal pain well-controlled. Tolerating oral intake. Diet: Regular. Voiding without difficulty. Passing flatus. Denies BM. Patient is bonding with baby in room Breast feeding going well. Feeding for long periods. Denies feeling lightheaded, dizzy or excessively fatigued. Objective General: Alert, oriented, no apparent distress. Cardiovascular: Regular rate. Regular rhythm. Lungs: No increased work of breathing. Abdomen: Uterus firm. Below umbilicus. No guarding or rebound. Assessment and Plan day 1. -Routine care -Anticipate discharge tomorrow Objective - Vital Signs/Intake & Output Vital Signs: Vital Signs x48h Temp Pulse Resp BP BP Pulse Ox 11/22/21 05:37 98.4 F 86 18 124/65 99 11/22/21 05:09 98.4 F 86 16 124/65 99 11/21/21 23:55 98.6 F 82 130/74 98 Intake & Output: Intake & Output 11/19/21 11/20/21 11/21/21 11/22/21 23:59 23:59 23:59 23:59 Intake Total 1250 Output Total 300 Balance 950 - Lab Results Fish Bones: 11/21/21 08:15 Other Labs: Lab Results x24hrs 11/21/21 11/21/21 Range/Units 08:15 08:15 WBC 10.9 H (4.8-10.8) x10^3/uL RBC 3.89 L (4.20-5.40) 10^6/uL Hgb 11.3 L (12.0-16.0) g/dL Hct 33.5 L (37.0-47.0) % MCV 86.1 (81.0-99.0) fL MCH 29.0 (27.0-31.0) pg MCHC 33.7 (32.0-36.0) g/dL RDW 13.4 (12.0-15.0) % Plt Count 234 (130-450) 10^3/uL MPV 13.0 H (7.9-10.8) fL Neut # (Auto) 8.0 H (1.5-6.6) 10^3/uL Lymph # (Auto) 2.1 (1.5-3.5) 10^3/uL Sumner # (Auto) 0.7 (0.0-1.0) 10^3/uL Eos # (Auto) 0.1 (0.0-0.7) 10^3/uL Baso # (Auto) 0.0 (0.0-0.1) 10^3/uL Absolute Nucleated RBC 0.00 x10^3/uL Nucleated RBC % 0.0 /100WBC Blood Type O POSITIVE Antibody Screen NEGATIVE
[2021-11-22] MEDS: DOCUSATE SODIUM 100 MG CAPSULE PO PRN ×2 (09:09→21:58)
[2021-11-23] MEDS: ACETAMINOPHEN 500 MG TABLET PO SCH ×2 (00:02→08:30)
[2021-11-23] MEDS: IBUPROFEN 600 MG TABLET PO SCH ×2 (06:43→12:39)
[2021-11-23] MEDS: DOCUSATE SODIUM 100 MG CAPSULE PO PRN (08:30)
--- NOTE | 2021-11-23 10:38 | Discharge Plan ---
Discharge Plan Problem Reviewed?: Yes Disposition: Home, Self Care Condition: Good Diet: Regular Activity Restrictions: No Restrictions Instruction Topics: Vaginal After No Smoking: If you smoke, Please STOP! Call for help. Follow-up with: Pk Lazaro MD [Provider Admit Priv/Credential] -
--- NOTE | 2021-11-23 10:44 | DISCHARGE SUMMARY ---
Discharge Summary Admit Date: 11/21/21 Discharge Date: 11/23/21 Discharging Provider: Pk Lazaro MD Code Status: Attempt Resuscitation Condition at Discharge: Good Discharge Disposition: 01 Home, Self Care - DIAGNOSES Admission Diagnoses: 40 weeks gestation Term labor GBS positive Discharge Diagnoses with Status of Each Condition: Same Status post spontaneous vaginal delivery - HPI History of Present Illness: Subjective Patient reports she is doing well. Lochia appropriate. Denies heavy bleeding. Ambulating. Pelvic and abdominal pain well-controlled. Tolerating oral intake. Diet: Regular. Voiding without difficulty. Passing flatus. Denies BM. Patient is bonding with baby in room Breast feeding going well. Denies feeling lightheaded, dizzy or excessively fatigued. Objective General: Alert, oriented, no apparent distress. Cardiovascular: Regular rate. Regular rhythm. Lungs: No increased work of breathing. Abdomen: Uterus firm. Below umbilicus. No guarding or rebound. - HOSPITAL COURSE Hospital Course: Patient presented at 40 weeks 2 days gestation in term labor with spontaneous rupture of membranes. She had been taking acyclovir for HSV prophylaxis and had no symptoms or lesions. She was 5 cm on admission and grossly ruptured. She received nitrous oxide for pain control. She did start vancomycin for GBS sepsis prophylaxis as she was GBS positive, but labor was rapid and did not have adequate treatment time. Spontaneous vaginal delivery was uncomplicated. She had a periurethral and first-degree midline laceration that were repaired at time of delivery. Baby and mother were doing well on day 2 and were discharged together. weight: 3552 g - ALLERGIES Allergies/Adverse Reactions: Allergies Allergy/AdvReac Type Severity Reaction Status Date / Time amoxicillin Allergy Anaphylaxis Verified 04/18/21 11:06 - MEDICATIONS Home Medications: Ambulatory Orders Medication Instructions Recorded Confirmed Ondansetron Odt [Zofran] 4 mg TL Q6H PRN #20 tablet 04/01/21 Ondansetron Odt [Zofran] 4 mg TL Q6H PRN #10 tablet 04/18/21 Acetaminophen [Acetaminophen Extra 1,000 mg PO Q8H PRN #60 tablet 11/23/21 Strength] Docusate Sodium 100Mg Capsule 100 - 200 mg PO BID PRN #60 cap 11/23/21 [Colace 100Mg Capsule] Ibuprofen [Motrin] 600 mg PO Q6H PRN #30 tab 11/23/21 - LABS Result Diagrams: 11/21/21 08:15 - FOLLOW UP Follow Up: Follow-up in 1 week with Pk Lazaro MD - TIME SPENT Time Spent in Discharge (Minutes): 20
[2021-11-23 10:58] VITALS: BP 115/68
--- NOTE | 2021-11-23 14:39 | Labor Flowsheet ---
Labor Flowsheet Datetime Report Generated by CPN: 11/23/2021 14:39 Datetime: 11/21/2021 11:29 VITAL SIGNS NBP Sys/[place]/Mean (mmHg): 133 : 71 : 86 Pulse: 81 Datetime: 11/21/2021 11:13 UTERINE ACTIVITY Monitor Mode: External Frequency (min): 1-2 Quality: Strong Duration (sec): 60 Pattern: Normal: <= 5 Contractions in 10 Minutes Resting Tone (Palpate): Relaxed Comments: FHT while pushing 80-130s. dr zaman aware. decent with pushing. delivery at 1113 Datetime: 11/21/2021 11:00 STAGE 2 Pushing: Coached on Pushing; Urge to Push Pushing Position: Pushing with Contractions; Pushing Left Side Pushing Progress: Descent with Pushing Datetime: 11/21/2021 10:57 VAGINAL EXAM Dilatation (cm): 10.0 Station: 1 Exam by: junie Datetime: 11/21/2021 10:54 Stage of : Labor Respirations: 18 SpO2 (%): 100 PAIN Pain Coping: Breathing Through Contractions; Crying Pain Assessment Comments: pt in pain and has involuntary pushing. pt seemed pale and exhausted to t alk, and shaking. VSS, additional help called in. Dr zaman at bedside LaborFlag: Labor Datetime: 11/21/2021 10:45 Hygiene: Jess Care; Underpad Changed; Peripad Changed Datetime: 11/21/2021 10:30 ASSESSMENT A Monitor Mode: External US FHR Baseline Rate : 125 Variability: Moderate 6-25 bpm Accelerations: 15X15 Oxygen Method: Room Air Datetime: 11/21/2021 10:23 Temperature (C): 36.7 COMMUNICATION Communication: Provider at Bedside Communication Comments: junie Datetime: 11/21/2021 10:10 Comfort Measures: Breathing/Relaxation; Coaching; Back Rub Given Datetime: 11/21/2021 10:08 Effacement (%): 100 Datetime: 11/21/2021 10:00 FHR Baseline Changes: No Baseline Change Decelerations: None Category: Category I Datetime: 11/21/2021 09:58 MEDICATIONS Medication Comments: vanco started for GBS positive Datetime: 11/21/2021 09:52 Provider Notified (Name): Junie Datetime: 11/21/2021 09:35 I/O Interventions: Ice Chips Given Patient Care Comments: feeling pressure VE 9/90/-1 Datetime: 11/21/2021 09:30 Monitor Interventions for FHR: Ultrasound Adjusted Datetime: 11/21/2021 08:51 PATIENT CARE IV/Blood Work: IV Infusing per Order
== END 2021-11-23 14:20 | disposition home or self-care (01) | DRG 807 ==
LOC: WFO 07:28 → FBP 07:31 → WFO 08:25 → FBP 08:26
PROVIDERS: ADMIT Obstetrics & Gynecology; ATTEND Obstetrics & Gynecology
PROC: 10E0XZZ Delivery of Products of Conception, External Approach (ICD-10-PCS; principal; 2021-11-21)
PROC: 0HQ9XZZ Repair Perineum Skin, External Approach (ICD-10-PCS; 2021-11-21)
DX: O98.32 Other infections with a predominantly sexual mode of transmission complicating childbirth (principal); Z37.0 Single live birth; A60.04 Herpesviral vulvovaginitis; O70.0 First degree perineal laceration during delivery; O99.824 Streptococcus B carrier state complicating childbirth; Z3A.40 40 weeks gestation of pregnancy; Z79.899 Other long term (current) drug therapy; Z88.1 Allergy status to other antibiotic agents
CPT/HCPCS: 59025; 85025; 86850; 86900; 86901; 99215; A9270; J3370; J7120; 99213